=== PATIENT | male | born 1985 | race Caucasian/White ===

== ENCOUNTER 2017-09-28 14:08 | Inpatient (IN) | payer OTHER, MEDICAID ==
--- NOTE | 2017-09-28 14:41 | EDPHY ---
H & P Time Seen by Provider: 09/28/17 14:40 HPI/ROS: CHIEF COMPLAINT: Nausea and vomiting HISTORY OF PRESENT ILLNESS: Patient is had 4 episodes total of this in the last 3 years. He thinks it is due to stress. He presents with nausea and vomiting 8 or 9 times since last night with diffuse abdominal cramping. No bowel movement and no diarrhea , no previous abdominal surgeries. Symptoms severe and worse if he tries to eat or drink. Not associated with fever or chills. He does have some pretty significant fatigue. Abdominal cramps do not radiate. No hematemesis or coffee-ground emesis or melena. REVIEW OF SYSTEMS: Eye: no change in vision ENT: no sore throat Cardiac: no chest pain or syncope Pulmonary: no cough or SOB Abdomen: HPI Musculoskeletal: no back pain Skin: no rash Neuro: no headache Constitutional: no fever : no urinary symptoms A comprehensive 10 point review of systems is otherwise negative aside from elements mentioned in the history of present illness. PAST MEDICAL HISTORY: Previous vomiting, on diazepam for Tourette's syndrome Social history: Denies recent alcohol General Appearance: Alert and conversant, cooperative. Eyes: No scleral icterus. ENT, Mouth: Slightly dry mucous membranes Respiratory: Normal respiratory effort, breath sounds equal, lungs are clear to auscultation. Cardiovascular: Regular rate and rhythm. Gastrointestinal: Abdomen is soft and non tender. Normal male . Neurological: Alert, face symmetric, normal motor and sensory in extremities. Skin: Warm and dry, no rashes. Musculoskeletal: No peripheral edema. Psychiatric: Not agitated. Emergency Department course/MDM: Patient states he thinks this is related to his Tourette's and he gets worse nausea vomiting when he has stress. His abdominal examination does not suggest acute surgical process. He is clinically mildly dehydrated. Normal saline 2 L IV, Ativan 1 mg IV, Benadryl 25 mg IV. Labs to include CBC chemistry LFT and lipase. 1531: Labs reviewed including WBC 13 and negative chemistries including LFTs and lipase. Feels better but not asleep yet, additional 1 mg IV Ativan 1655: The sleeping quietly, no nausea vomiting. 1715: Recurrent nausea and vomiting, additional 4 mg IV Zofran, will admit as the patient says in the past his symptoms have never resolved without an overnight stay when they are this bad. Smoking Status: Heavy smoker Constitutional: Initial Vital Signs Temperature (C) 36.8 C 09/28/17 14:35 Heart Rate 60 09/28/17 14:35 Respiratory Rate 18 09/28/17 14:35 Blood Pressure 119/88 H 09/28/17 14:35 O2 Sat (%) 98 09/28/17 14:35 O2 Delivery Mode Room Air Allergies/Adverse Reactions: No Known Allergies Allergy (Unverified 11/24/11 08:28) Home Medications: Medication Instructions Recorded Diazepam [Valium 10 MG (RX)] 20 mg PO .DAILY 11/24/11 Medical Decision Making Differential Diagnosis: Differential diagnosis considered for nausea and vomiting including but not limited to anxiety, gastroenteritis, gastritis, appendicitis, and medication side effect. Consult/Admit Bed Type: [place] [address] - Data Points Laboratory Results: Laboratory Results 09/28/17 14:52 09/28/17 14:52 09/28/17 09/28/17 14:52 14:52 WBC 13.63 10^3/uL H 10^3/uL (3.80-9.50) RBC 5.60 10^6/uL 10^6/uL (4.40-6.38) Hgb 17.5 g/dL g/dL (13.7-17.5) Hct 50.0 % % (40.0-51.0) MCV 89.3 fL fL (81.5-99.8) MCH 31.3 pg pg (27.9-34.1) MCHC 35.0 g/dL g/dL (32.4-36.7) RDW 11.6 % % (11.5-15.2) Plt Count 248 10^3/uL 10^3/uL (150-400) MPV 10.2 fL fL (8.7-11.7) Neut % (Auto) 91.4 % H % (39.3-74.2) Lymph % (Auto) 5.4 % L % (15.0-45.0) [place] % (Auto) 2.6 % L % (4.5-13.0) Eos % (Auto) 0.0 % L % (0.6-7.6) Baso % (Auto) 0.1 % L % (0.3-1.7) Nucleat RBC Rel Count 0.0 % % (0.0-0.2) Absolute Neuts (auto) 12.44 10^3/uL H 10^3/uL (1.70-6.50) Absolute Lymphs (auto) 0.74 10^3/uL L 10^3/uL (1.00-3.00) Absolute Monos (auto) 0.36 10^3/uL 10^3/uL (0.30-0.80) Absolute Eos (auto) 0.00 10^3/uL L 10^3/uL (0.03-0.40) Absolute Basos (auto) 0.02 10^3/uL 10^3/uL (0.02-0.10) Absolute Nucleated RBC 0.00 10^3/uL 10^3/uL (0-0.01) Immature Gran % 0.5 % % (0.0-1.1) Immature Gran # 0.07 10^3/uL 10^3/uL (0.00-0.10) Sodium 144 mEq/L mEq/L (135-145) Potassium 4.7 mEq/L mEq/L (3.5-5.2) Chloride 100 mEq/L mEq/L (97-110) Carbon Dioxide 24 mEq/l mEq/l (22-31) Anion Gap 20 mEq/L H mEq/L (8-16) BUN 15 mg/dL mg/dL (7-23) Creatinine 0.9 mg/dL mg/dL (0.7-1.3) Estimated GFR > 60 Glucose 153 mg/dL H mg/dL (70-100) Calcium 10.4 mg/dL mg/dL (8.5-10.4) Total Bilirubin 0.6 mg/dL mg/dL (0.1-1.4) Conjugated Bilirubin 0.2 mg/dL mg/dL (0.0-0.5) Unconjugated Bilirubin 0.4 mg/dL mg/dL (0.0-1.1) AST 24 IU/L IU/L (17-59) ALT 32 IU/L IU/L (21-72) Alkaline Phosphatase 67 IU/L IU/L (38-126) Total Protein 8.0 g/dL g/dL (6.3-8.2) Albumin 4.9 g/dL g/dL (3.5-5.0) Lipase 50 IU/L IU/L (23-300) Medications Given: Calcium Carbonate (Tums) 500 mg PO TID PRN PRN Reason: Indigestion Stop: 03/27/18 15:34 Last Admin: 09/28/17 15:43 Dose: 500 mg Discontinued Medications Diphenhydramine HCl (Benadryl Injection) 25 mg IVP EDNOW ONE Stop: 09/28/17 14:49 Last Admin: 09/28/17 15:02 Dose: 25 mg Sodium Chloride (Ns) 1,000 mls @ 0 mls/hr IV EDNOW ONE; Wide Open PRN Reason: Protocol Stop: 09/28/17 14:48 Last Admin: 09/28/17 15:02 Dose: 1,000 mls Sodium Chloride (Ns) 1,000 mls @ 0 mls/hr IV EDNOW ONE; Wide Open PRN Reason: Protocol Stop: 09/28/17 14:48 Last Admin: 09/28/17 15:03 Dose: 1,000 mls Lorazepam (Ativan Injection) 1 mg IVP EDNOW ONE Stop: 09/28/17 14:49 Last Admin: 09/28/17 15:02 Dose: 1 mg Lorazepam (Ativan Injection) 1 mg IVP EDNOW ONE Stop: 09/28/17 15:34 Last Admin: 09/28/17 15:43 Dose: 1 mg Ondansetron HCl (Zofran) 4 mg IVP EDNOW ONE Stop: 09/28/17 14:48 Last Admin: 09/28/17 15:02 Dose: 4 mg Departure - Departure Disposition: [facility] Inpatient Acute Clinical Impression: Nausea and vomiting Qualifiers: Vomiting type: unspecified Vomiting Intractability: non-intractable Qualified Code(s): R11.2 - Nausea with vomiting, unspecified Condition: Good Instructions: Acute Nausea and Vomiting (ED) Referrals: Eva Coreas MD [Primary Care Provider] - As per Instructions
[2017-09-28] MEDS ORDERED: ONDANSETRON 4 MG/2 ML VIAL IVP ONE ×2 (14:47→17:14)
[2017-09-28] MEDS ORDERED: NS 1,000 ML IV ONE ×4 (14:47→17:18)
[2017-09-28] MEDS ORDERED: LORazepam 2 MG/ML INJ IVP ONE ×2 (14:48→15:33)
[2017-09-28 15:01] LABS: PLATELET COUNT 248 10^3/uL (150-400)
[2017-09-28] MEDS: CALCIUM CARBONATE 500 MG CHEWABLE TAB PO PRN ×3 (15:43→21:03)
[2017-09-28] MEDS ORDERED: ACETAMINOPHEN 325 MG TAB PO PRN (17:18)
[2017-09-28] MEDS ORDERED: KETAMINE 200 MG/20 ML VIAL IVP ONE (17:20)
[2017-09-28] MEDS: NS 1,000 ML IV SCH (18:38)
[2017-09-28] MEDS: ONDANSETRON 4 MG/2 ML VIAL IVP PRN (19:33)
--- NOTE | 2017-09-28 19:35 | GHP ---
[f rep st] HISTORY AND PHYSICAL DATE OF ADMISSION: 09/28/2017 CHIEF COMPLAINT: Vomiting. HISTORY OF PRESENT ILLNESS: A 31-year-old male with a significant psychiatric history including Tour ette's, who presents with complaints of intractable nausea and vomiting of the days previous to his p resentation. The patient reports multiple episodes of emesis, which were bilious in nature and then some blood streaking the day of presentation. Has had loose stools but no diarrhea. He has develope d abdominal discomfort over the course of the last 24 hours. Patient reports he has had several othe r episodes of this type of vomiting in the past. Typically treats himself with marijuana and has res olution of symptoms. Because he was not improving, patient presented for evaluation. In the ED, he denies any chest pain. Denies shortness of breath. Denies cough. Denies subjective fevers or chill s. Denies dysuria, hematuria, or lower extremity edema. Denies any new rashes. PAST MEDICAL HISTORY: 1. Tourette's. 2. OCD. 3. Bipolar disorder. 4. Chronic headaches. SOCIAL HISTORY: Positive for tobacco. Occasional alcohol. Patient denies illicit drugs. FAMILY HISTORY: Unknown if Tourette's is familial. ADVANCED DIRECTIVES: Patient is full COR, full tube. REVIEW OF SYSTEMS: A 10-point review of systems is negative with the exception of that reported in t he HPI. PHYSICAL EXAMINATION: VITAL SIGNS: Blood pressure 118/91, heart rate 65, respiratory rate 16, 96% o n room air, 37.0. GENERAL: This is a young-appearing male lying flat in bed. HEENT: Exam is notab le for dry mucous membranes. Eye exam is negative for any icterus. CARDIAC: Regular rate and rhyth m. PULMONARY: Clear to auscultation bilaterally. GASTROINTESTINAL: Positive bowel sounds. Abdome n is soft and nontender. MUSCULOSKELETAL: Negative for any lower extremity edema. SKIN: Negative for any rashes. NEUROLOGIC: He is alert and oriented x3. PSYCHIATRIC: He is pleasant and cooperat cristóbal on interview and examination. DATA: White count 13.6, hematocrit 50, platelet count of 248. Creatinine of 0.9, sodium 144, lipase of 50. Last chest x-ray performed, which I personally reviewed and interpreted, shows no cardiopulm onary abnormalities. ASSESSMENT AND PLAN: 1. This is a 31-year-old male presenting with intractable nausea. Differential would include gastro enteritis, cyclic vomiting secondary to marijuana, other medications that we are unaware of that he i s either withdrawing from or having side effects from. We will admit the patient for IV fluid resusc itation, IV antiemetics. We will send a GI pathogen panel for any developed diarrhea overnight. Charles l treat with Zofran, promethazine, and Ativan as needed for nausea. Fluid resuscitate with normal sa line obviously holding any marijuana or illicit drugs while in the hospital. Send a drug panel to be tter understand other substances that may be contributing. 2. Psychiatric history. Will continue patient's home medications when reconciled. He is not descri prieto any recent new medications or withdrawal medications that could be contributing to his symptoms. 3. Prophylaxis. He is young and can ambulate. We will hold on Lovenox at this time. DIET: As he can tolerate. DISPOSITION: I expect less than 2 midnights if the patient responds well to IV fluid resuscitation a nd antiemetics. I have discussed the case with the emergency room physician. Patient will be triage d to the medical-surgical floor for care. /[id number]/MODL
[2017-09-28] MEDS: PROMETHAZINE HCL 25 MG/ML INJ IVP PRN (20:25)
[2017-09-28] MEDS: LORazepam 2 MG/ML INJ IVP PRN (20:55)
[2017-09-29] MEDS: ONDANSETRON 4 MG/2 ML VIAL IVP PRN ×2 (00:32→08:17)
[2017-09-29] MEDS: LORazepam 2 MG/ML INJ IVP PRN ×5 (01:03→23:47)
[2017-09-29] MEDS: PROMETHAZINE HCL 25 MG/ML INJ IVP PRN ×3 (03:20→19:29)
[2017-09-29] MEDS: CALCIUM CARBONATE 500 MG CHEWABLE TAB PO PRN ×2 (03:48→21:06)
[2017-09-29 05:34] LABS: PLATELET COUNT 202 10^3/uL (150-400)
[2017-09-29] MEDS ORDERED: ALBUTEROL HFA ANES ONLY 200 PUFFS/8.5 GM MDI IH PRN (06:59)
[2017-09-29] MEDS ORDERED: ALBUTEROL 60 PUFFS/8 GM MDI IH PRN (07:01)
[2017-09-29] MEDS: CEPACOL LOZENGE PO PRN (11:38)
--- NOTE | 2017-09-29 12:09 | HOSPPROG ---
Hospitalist Progress Note Assessment/Plan: 31y male with c/o n/v for several days. First encounter, chart reviewed. D/W RN. #N/V -cyclic -etiol unclear, likely multifactorial -anxiety, THC, tobacco etc -cont supportive care -IVF, meds -episode this am #OCD/Torettes -pt has good outpt support -cont meds #PTSD -stable #Leukocytosis -follow -afebrile #Dispo -unclear -change to inpt status -conts to have emesis -IVF -antimetics Objective: Vital Signs Temp Pulse Resp BP Pulse Ox 37.1 C 72 18 131/75 H 96 09/29/17 11:43 09/29/17 11:43 09/29/17 11:43 09/29/17 11:43 09/29/17 11:43 Laboratory Results 09/29/17 04:50 09/29/17 04:50 09/28/17 09/29/17 09/30/17 05:59 05:59 05:59 Intake Total 3850 Output Total 1825 100 Balance 2024 ICD10 Worksheet Patient Problems: Problems Problem Status Onset Nausea and vomiting Acute
--- NOTE | 2017-09-29 12:32 | PDMN ---
Medical Necessity Medical necessity: C/M review: est. > 2 MN LOS for eval and TX of acute and persistent nausea / vomiting - cyclic, of unclear etiology, leukocytosis, anxiety, requiring ongoing IV fluids, IV antiemetics, IV Ativan, comorbid OCD, Torettes, PTSD, marijuana use, tobacco use per 09/29/2017 Hospitalist progress note.
--- NOTE | 2017-09-29 15:49 | ASMTCMCOM ---
CM Note CM Note Notes: Pt admitted w/ intractable, cyclic nausea and vomiting, etiology unclear. Pt has an extensive psychiatric history including bipolar disorder, OCD, and Tourette's. Pt lives alone. Anticipate pt will likely discharge home independently when medically stable. CM will cont to follow for any potential needs. Current Discharge Plan: Home independently Date Signed: 09/29/2017 03:48 PM Electronically Signed By:Charlotte Godwin RN
[2017-09-29] MEDS: ONDANSETRON DISINTEGRATING 4 MG TAB PO PRN (21:06)
[2017-09-30] MEDS: PROMETHAZINE HCL 25 MG/ML INJ IVP PRN ×2 (05:23→23:09)
[2017-09-30] MEDS: CALCIUM CARBONATE 500 MG CHEWABLE TAB PO PRN ×5 (05:23→22:57)
[2017-09-30 05:24] LABS: PLATELET COUNT 169 10^3/uL (150-400)
[2017-09-30] MEDS: LORazepam 2 MG/ML INJ IVP PRN ×2 (06:11→20:48)
[2017-09-30] MEDS: CEPACOL LOZENGE PO PRN ×3 (12:23→20:48)
--- NOTE | 2017-09-30 12:53 | HOSPPROG ---
Hospitalist Progress Note Assessment/Plan: 31y male with c/o n/v for several days. D/W RN. #N/V -cyclic in nature, some emesis this am -etiol unclear, likely multifactorial -anxiety, THC, tobacco etc -cont supportive care -IVF, meds #OCD/Torettes -pt has good outpt support -cont meds #PTSD -stable #Leukocytosis -follow -afebrile #Dispo -unclear -inpt status -conts to have emesis -IVF -antimetics Subjective: Still not feeling well. Feels weak and nauseous. Objective: Vital Signs Temp Pulse Resp BP Pulse Ox 37.2 C 76 18 141/84 H 97 09/30/17 11:20 09/30/17 11:20 09/30/17 11:20 09/30/17 11:20 09/30/17 11:20 Laboratory Results 09/30/17 04:47 09/30/17 04:47 09/29/17 09/30/17 10/01/17 05:59 05:59 05:59 Intake Total 400 Output Total 1000 Balance -600 - Physical Exam Constitutional: appears nourished, not in pain Eyes: PERRL, anicteric sclera Ears, Nose, Mouth, Throat: moist mucous membranes, hearing normal Cardiovascular: No JVD, No edema Respiratory: no respiratory distress, clear to auscultation Gastrointestinal: No tenderness, No ascites, No guarding, No rebound Skin: warm, normal color, mottled Musculoskeletal: normal joint ROM, no joint effusions Neurologic: AAOx3 Psychiatric: not encephalopathic, anxious, poor judgement ICD10 Worksheet Patient Problems: Problems Problem Status Onset Nausea and vomiting Acute
[2017-09-30] MEDS: ONDANSETRON 4 MG/2 ML VIAL IVP PRN ×2 (15:21→20:35)
[2017-09-30] MEDS: NS 1,000 ML IV SCH ×2 (15:21→23:12)
[2017-09-30] MEDS: DIAZEPAM 10 MG TAB PO PRN ×2 (15:39→23:02)
[2017-10-01] MEDS: ONDANSETRON 4 MG/2 ML VIAL IVP PRN ×2 (01:41→11:09)
[2017-10-01 05:05] VITALS: O2SAT 95
[2017-10-01 07:34] VITALS: RESP 18
--- NOTE | 2017-10-01 08:39 | HOSPPROG ---
Hospitalist Progress Note Assessment/Plan: 31y male with c/o n/v for several days. Today is my first encounter with the patient, chart reviewed. #N/V -cyclic in nature, some emesis last night -etiology unclear, likely multifactorial -anxiety, THC, tobacco etc -cont supportive care -IVF, meds -LFT stable #OCD/Torettes -Cannibis helps #PTSD -stable #Leukocytosis -almost resolved #Plan; trial of hot shower, if he can drink without emesis, will dc today Subjective: Mike says he feels judged by people in general and wants info on hyperemesis sydrome. Objective: Vital Signs Temp Pulse Resp BP Pulse Ox 37.0 C 61 18 125/85 H 95 10/01/17 07:34 10/01/17 07:34 10/01/17 07:34 10/01/17 07:34 10/01/17 07:34 Laboratory Results 09/30/17 04:47 09/30/17 04:47 09/30/17 10/01/17 10/02/17 05:59 05:59 05:59 Intake Total 400 2132 Output Total 1000 2900 Balance -600 -768 - Physical Exam Constitutional: no apparent distress, not in pain Eyes: PERRL Ears, Nose, Mouth, Throat: hearing normal Gastrointestinal: normoactive bowel sounds, soft, non-tender abdomen Skin: warm Musculoskeletal: full muscle strength Neurologic: AAOx3 Psychiatric: interacting appropriately, anxious ICD10 Worksheet Patient Problems: Problems Problem Status Onset Nausea and vomiting Acute
[2017-10-01] MEDS: LORazepam 2 MG/ML INJ IVP PRN (11:07)
--- NOTE | 2017-10-01 11:14 | ASMTCMCOM ---
CM Note CM Note Notes: Patient is improved but will go for an abdominal x-ray due to inability to have a bowel movement. Patient is getting both Zofran and Phenergan for the nausea. Will continue to monitor as patient will most likely d/c today. Patient has his own apartment, although not many friends or family as support. (per his report) No d/c needs identified at this time. CM will follow. Date Signed: 10/01/2017 11:14 AM Electronically Signed By:Nya Lee LCSW
[2017-10-01 11:20] VITALS: PULSE 53
[2017-10-01] MEDS ORDERED: PANTOPRAZOLE SODIUM 40 MG TAB PO SCH (11:30)
[2017-10-01 14:56] VITALS: BP 115/70; TEMP 98.6
[2017-10-01] MEDS: ONDANSETRON DISINTEGRATING 4 MG TAB PO PRN (15:09)
--- NOTE | 2017-10-01 15:23 | ASMTCMCOM ---
CM Note CM Note Notes: Patient's Xray just showed some mild constipation. Patient to d/c today. Made patient a follow-up appointment with his PCP, Dr. Chintan Coreas who is now with [facility]. Appointment is this Wednesday October 04, 2017 @ 3:00, with check-in at 2:45 PM. Patient was given this information along with the address and phone number of the practice. Dr. Coreas's office said he can call if his symptoms come back prior to Saturday. No further d/c needs. Date Signed: 10/01/2017 03:23 PM Electronically Signed By:Nya Lee LCSW
--- NOTE | 2017-10-01 16:20 | GDS ---
[f rep st] DISCHARGE SUMMARY DISCHARGE DIAGNOSIS: 1. Nausea with associated vomiting. 2. Obsessive-compulsive disorder and Tourette's. 3. Posttraumatic stress disorder. 4. Leukocytosis. HISTORY OF PRESENT ILLNESS: Briefly, the patient is a 31-year-old male with a history including Tourette's, who presented with complaints of intractable nausea and vomiting. He reports multiple episodes of nausea that were bilious in nature and some blood streaking. He has had loose stools but no diarrhea. During his stay, he was given supportive care and given IV hydration, including ant emetics. His laboratory data shows stable liver enzymes with a stable lipase. Today, he is eating clear liquids, recommending that he stay on clears in the outpatient setting until he can improve his intake. Also recommending a warm water bottle. He had an abdominal x-ray which showed some mild constipation. HOSPITAL COURSE: 1. Nausea and vomiting. This afternoon, he is eating and drinking clear liquids. The etiology of his nausea and vomiting could be multifactorial with associated anxiety, THC or tobacco use. Encouraged him to follow up with his primary care provider. He improved with being started treatment with a PPI. Will continue this twice daily for a week and then daily. 2. Tourette's and OCD. Cannabis helps him with this. 3. PTSD, stable. 4. Leukocytosis, almost completely resolved. DISCHARGE CONDITION: Stable. Blood pressure is 115/70, heart rate is 63, respiratory rate is 18, O2 saturations on room air 95%, temperature is 37 degrees Celsius. MEDICATIONS AT DISCHARGE: Please see the EMR. DISCHARGE INSTRUCTIONS: 1. Further follow up with his primary care provider. Recommending that he stays on the Protonix. 2. To try a warm water bottle to see if this helps with nausea and vomiting, and follow up with Dr. Coreas. Case Management has made an appointment for him to get close followup with her. TIME SPENT: Greater than 30 minutes discharging and coordinating the patient's care. /[id number]/MODL MTDD
== END 2017-10-01 16:49 | disposition home or self-care (01) | DRG 392 ==
LOC: F3E 18:26 → OBSVTOIN 09-29 12:09
PROVIDERS: ADMIT Hospitalist; ATTEND Hospitalist
DX: R11.2 Nausea with vomiting, unspecified (principal); E86.9 Volume depletion, unspecified; F12.90 Cannabis use, unspecified, uncomplicated; F42.9 Obsessive-compulsive disorder, unspecified; F95.2 Tourette's disorder; F43.10 Post-traumatic stress disorder, unspecified; Z72.0 Tobacco use
CPT/HCPCS: 80307; 96374; G0378; G0480; J1200; J2060; J2405; J2550